=== PATIENT | female | born 1985 | race African-American/Black ===

== ENCOUNTER 2020-11-25 20:46 | Emergency (ER) | payer SELFPAY ==
[~2020-11-25] VITALS: Ht 162.6 cm; Wt 108.9 kg
[2020-11-25 20:57] VITALS: BP_SYST 203
[2020-11-25 21:33] VITALS: BP_SYST 135
== END 2020-11-25 21:33 | disposition home or self-care (01) ==
LOC: SED 20:46
DX: H60.02 Abscess of left external ear (principal)
CPT/HCPCS: 99283

== ENCOUNTER 2024-03-28 13:57 | Emergency (ER) | payer SELFPAY ==
[~2024-03-28] VITALS: Ht 175.3 cm; Wt 104.3 kg
[2024-03-28 14:00] VITALS: BP_SYST 138; PULSE 76; RESP 16; TEMP 97.8; O2SAT 96
[2024-03-28 15:07] LABS: BILIRUBIN,URINE NEGATIVE (NEGATIVE); BLOOD, URINE NEGATIVE (NEGATIVE); CLARITY/URINE CLEAR (CLEAR); COLOR,URINE YELLOW (YELLOW); GLUCOSE,URINE NEGATIVE (NEGATIVE); KETONES,URINE NEGATIVE (NEGATIVE); LEUKOCYTE ESTERASE ,URINE NEGATIVE (NEGATIVE); NITRITE, URINE NEGATIVE (NEGATIVE); PROTEIN URINE NEGATIVE (NEGATIVE)
[2024-03-28 15:40] LABS: BASOPHILS # (AUTO) 0.1 K/uL (0.0-0.2); BASOPHILS % (AUTO) 0.8 % (0.0-2.0); EOSINOPHILS % (AUTO) 0.3 % (0.0-4.0); HEMATOCRIT 30.8 % (36-48); HEMOGLOBIN 9.6 g/dL (12.0-16.0); LYMPHOCYTES % (AUTO) 14.1 % (20.5-51.5); MEAN CORPUSCULAR HEMOGLOBIN 20 pg (27-31); MEAN CORPUSCULAR HGB CONC 31 % (32-36); MEAN CORPUSCULAR VOLUME 65 fL (79.0-98.0); MONOCYTES # (AUTO) 0.4 K/uL (0.0-1.0); MONOCYTES % (AUTO) 5.4 % (1.7-9.3); NEUTROPHILS # (AUTO) 5.7 K/uL (1.8-7.7); NEUTROPHILS % (AUTO) 79.4 % (40.0-70.0); PLATELET COUNT (AUTO) 276 K/uL (130-430); RED BLOOD CELL COUNT(AUTO) 4.71 MIL/uL (4.2-6.2); RED CELL DISTRIBUTION WIDTH 18.4 % (9.0-15.0); WHITE BLOOD COUNT (AUTO) 7.1 K/uL (4.8-10.8)
[2024-03-28] MEDS: levETIRAcetam 1,000 MG IV BAG 100 ML IV ONE (15:48)
[2024-03-28 16:01] LABS: BARBITURATE, URINE NEGATIVE (NEG <=200); BENZODIAZEPINE, URINE NEGATIVE (NEG <=150); CANNABINOID, URINE POSITIVE (NEG <=50); COCAINE, URINE NEGATIVE (NEG <=150); METHAMPHETAMINES SCREEN,URINE NEGATIVE (NEG <=500); OPIATE, URINE NEGATIVE (NEG <=100); PHENCYCLIDINE SCREEN,URINE NEGATIVE (NEG <=25); URINE AMPHETAMINE NEGATIVE (NEG <=500); URINE METHADONE NEGATIVE (NEG <=200); URINE OXYCODONE SCREEN NEGATIVE (NEG <=100)
[2024-03-28 16:02] LABS: UR TRICYCLIC ANTIDEPRESSANTS NEGATIVE (NEG <=300)
[2024-03-28 16:16] LABS: CREATININE 0.73 mg/dL (0.55-1.30); POTASSIUM 4.5 mmol/L (3.5-5.1)
[2024-03-28] MEDS ORDERED: LEVE500T9 PO (16:46)
[2024-03-28 16:49] LABS: POLYCHROMASIA 1+
[2024-03-28 16:50] LABS: ANISOCYTOSIS 1+; HYPOCHROMASIA 2+; OVALOCYTES MODERATE; TEAR DROP CELLS MODERATE
[2024-03-28 18:11] VITALS: BP_SYST 136; PULSE 90; RESP 20; TEMP 97.8; O2SAT 98
== END 2024-03-28 18:10 | disposition home or self-care (01) ==
LOC: SED 13:57
DX: R56.9 Unspecified convulsions (principal); R20.2 Paresthesia of skin; Z79.899 Other long term (current) drug therapy
CPT/HCPCS: 99285; 96365; 70450; 80307; 80048; 83735; 85025; 36415; 93005; 81025; 82948; 81001; J1953; 81000; 81003; 81015

== ENCOUNTER 2024-06-21 02:01 | Emergency (ER) | payer SELFPAY ==
[~2024-06-21] VITALS: Ht 167.6 cm; Wt 99.8 kg
[~2024-06-21 02:01] MED LIST: BENZ100C92 PO; CETI-80 PO; LEVE500T9 PO; PRED50TA PO
[2024-06-21 02:11] VITALS: BP_SYST 135; PULSE 111; RESP 35; TEMP 96.7; O2SAT 94
[2024-06-21] MEDS: levETIRAcetam 1,000 MG IV BAG 100 ML IV ONE (02:35)
[2024-06-21 03:02] LABS: BASOPHILS % (AUTO) 0.2 % (0.0-2.0); EOSINOPHILS # (AUTO) 0.2 K/uL (0.0-0.4); EOSINOPHILS % (AUTO) 2.1 % (0.0-4.0); HEMATOCRIT 28.9 % (36-48); HEMOGLOBIN 8.7 g/dL (12.0-16.0); LYMPHOCYTES # (AUTO) 1.6 K/uL (1.0-5.5); LYMPHOCYTES % (AUTO) 20.5 % (20.5-51.5); MEAN CORPUSCULAR HEMOGLOBIN 20 pg (27-31); MEAN CORPUSCULAR HGB CONC 30 % (32-36); MEAN CORPUSCULAR VOLUME 65 fL (79.0-98.0); MONOCYTES # (AUTO) 0.5 K/uL (0.0-1.0); MONOCYTES % (AUTO) 6.9 % (1.7-9.3); NEUTROPHILS # (AUTO) 5.4 K/uL (1.8-7.7); NEUTROPHILS % (AUTO) 70.3 % (40.0-70.0); PLATELET COUNT (AUTO) 267 K/uL (130-430); RED BLOOD CELL COUNT(AUTO) 4.44 MIL/uL (4.2-6.2); RED CELL DISTRIBUTION WIDTH 19.9 % (9.0-15.0); WHITE BLOOD COUNT (AUTO) 7.7 K/uL (4.8-10.8)
[2024-06-21 03:20] LABS: ALBUMIN 3.6 g/dL (3.4-4.8); CALCIUM 8.3 mg/dL (8.4-11.0); CREATININE 0.98 mg/dL (0.55-1.30); POTASSIUM 3.5 mmol/L (3.5-5.1); TOTAL BILIRUBIN 0.6 mg/dL (0.0-1.0); TOTAL PROTEIN, SERUM 6.8 g/dL (6.4-8.3)
[2024-06-21] MEDS ORDERED: LEVE500T9 PO (05:32)
[2024-06-21 05:36] VITALS: BP_SYST 135; PULSE 117; RESP 21; TEMP 98.7; O2SAT 96
== END 2024-06-21 05:36 | disposition home or self-care (01) ==
LOC: SED 02:01
DX: R56.9 Unspecified convulsions (principal); E66.9 Obesity, unspecified; Z91.148 Patient's other noncompliance with medication regimen for other reason; Z68.35 Body mass index [BMI] 35.0-35.9, adult; Z98.890 Other specified postprocedural states; Z79.52 Long term (current) use of systemic steroids; Z79.2 Long term (current) use of antibiotics
CPT/HCPCS: 99284; 96365; 80053; 85025; 36415; 82948; J1953